=== PATIENT | male | born 1990 | race African-American/Black ===

== ENCOUNTER 2017-11-27 14:58 | Day surgery (SDC) | payer BC ==
[2017-11-27] MEDS ORDERED: Ringers Lactate 1,000 ML IV ONE (15:12)
[2017-11-27] MEDS ORDERED: PROPOFOL 200 MG/20 ML VIAL IV ONE (15:15)
[2017-11-27] MEDS ORDERED: ROCURONIUM 50 MG/5 ML VIAL IV ONE (15:15)
[2017-11-27] MEDS ORDERED: LIDOCAINE 2% MPF 5 ML VIAL ONE (15:15)
[2017-11-27] MEDS ORDERED: FENTANYL CITR 100 MCG/2 ML ONE (15:15)
[2017-11-27] MEDS ORDERED: BUPIVACA 0.25%/EPI 0.0005%/PF 30 ML VIAL ONE (15:22)
[2017-11-27] MEDS ORDERED: NA CIT/CITRIC AC 30 ML ORAL UDC ONE (15:25)
[2017-11-27] MEDS ORDERED: NA CIT/CITRIC AC 30 ML ORAL UDC PO ONE (15:37)
[2017-11-27] MEDS ORDERED: KETOROLAC 30 MG/ML INJ ONE (15:56)
[2017-11-27] MEDS ORDERED: DEXAMETHASONE 10 MG/ML VIAL ONE (15:57)
[2017-11-27] MEDS ORDERED: ONDANSETRON 4 MG/2 ML VIAL ONE (15:57)
[2017-11-27] MEDS ORDERED: MEPERIDINE HCL 25 MG/0.5 ML ONE (16:05)
[2017-11-27] MEDS ORDERED: GLYCOPYRROLATE 0.2 MG/ML SYR ONE (16:20)
[2017-11-27] MEDS ORDERED: Phenylephrine HCl 10 MG/ML 1 ML VIAL ONE (16:33)
--- NOTE | 2017-11-27 16:40 | P.OP ---
Preoperative diagnosis: Acute Appendicits Postoperative diagnosis: Acute Appendicits Primary procedure: Laparoscopic Appendectomy Anesthesia: GETA + Local Estimated blood loss: <5cc Specimen: Vermiform Appendix Findings: non-perforated appendicitis Complications: None Transferred to: Recovery Room Condition: Good
[2017-11-27] MEDS ORDERED: HYDROCODONE/APAP 5/325 MG TAB ONE (17:05)
--- NOTE | 2017-11-28 02:46 | OP ---
Date of Procedure: 11/27/2017 Surgeon: Chilango Elizalde MD, MD Preoperative Diagnosis: Acute appendicitis. Postoperative Diagnosis: Acute appendicitis. Procedure Performed: Laparoscopic appendectomy. Anesthesia: General endotracheal plus local with 0.25% Marcaine. Estimated Blood Loss: Less than 5 cc. Specimen: Vermiform appendix. Findings: Nonperforated appendicitis. Complications: None. Disposition: Transferred to recovery room in good condition. Procedure In Detail: After informed consent was obtained, the patient was brought to the operating r oom and prepped and draped in the usual sterile fashion. After adequate anesthesia was achieved, a s upraumbilical area was anesthetized with 0.25% Marcaine and sharply incised and a 5-mm trocar was int roduced into the abdomen without evidence of complication. Insufflation was obtained to 15 mmHg at t his time. There was no injury to vital structures upon entry into the abdomen. Two additional troca r sites were chosen, one in the suprapubic area to the right of midline and one in the left lower roddy drant. These were both similarly anesthetized and sharply incised. A 5-mm trocar was introduced int o the abdomen without evidence of complication. The umbilical trocar was then up-sized to a 12 mm un lynsey direct visualization without evidence of complication. The patient was then positioned in the he ad down right side up position. Ratcheted grasper was used to grasp the appendix. A mesoappendiceal window was created using a Sary retractor and the EndoGIA 35 blue load was fired across the base of the appendix with good approximation of tissues. There was minimal bleeding from the staple line at this time. The LigaSure device was then used to take the mesoappendix down without evidence of co mplication. There was no bleeding from the mesoappendix. The appendix was then placed in EndoCatch bag, removed through the umbilical trocar, and sent off for pathologic examination. Reinflation was obtained at this time. The area was inspected for proper hemostasis and the area was copiously irrig ated multiple times and suctioned until completely clear. Good hemostasis was achieved at the end of the procedure without any additional hemostatic maneuvers. The patient was positioned in neutral po sition. The umbilical trocar was then removed, and the umbilical trocar site was closed with a Snaa Del Cid suture passer using 0 Vicryl interrupted fashion with good approximation of tissues. The abdomen was completely desufflated under direct visualization without evidence of complication. All trocars were then removed after completely desufflating the abdomen and copiously irrigated multiple times until completely clear and closed with a 4-0 Monocryl in a running fashion. Dermabond placed o mihir top. The patient tolerated the procedure well without evidence of complication and transferred t o PACU in good condition. All counts were correct at the end of the case. BANDAR/CRISTHIAN Voice ID: [id number] Report ID: [id number]
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
== END 2017-11-27 18:00 | disposition home or self-care (01) ==
LOC: OR 14:58
PROVIDERS: ATTEND Emergency Medicine
PROC: 0DTJ4ZZ Resection of Appendix, Percutaneous Endoscopic Approach (ICD-10-PCS; principal; 2017-11-27 16:30)
DX: K35.80 Unspecified acute appendicitis (principal); Z82.49 Family history of ischemic heart disease and other diseases of the circulatory system
CPT/HCPCS: 88304; J1100; J2175; J2370; J2405; J3010